=== PATIENT | female | born 1990 | race Caucasian/White ===

== ENCOUNTER 2017-09-09 01:13 | Emergency (ER) | payer OTHER ==
[~2017-09-09] VITALS: Ht 147.3 cm; Wt 104.3 kg
[2017-09-09] MEDS ORDERED: FLUOXETINE DR90 MG PO (02:32)
[2017-09-09] MEDS ORDERED: ZOVIRAX200 MG PO (02:34)
[2017-09-09] MEDS ORDERED: ABILIFY10 MG PO (02:34)
[2017-09-09] MEDS ORDERED: PREDNISONE20 MG PO (05:48)
== END 2017-09-09 06:42 | disposition home or self-care (01) ==
LOC: ED 01:13
DX: B34.9 Viral infection, unspecified (principal); R21 Rash and other nonspecific skin eruption; F31.9 Bipolar disorder, unspecified; Z90.49 Acquired absence of other specified parts of digestive tract; Z90.89 Acquired absence of other organs; Z79.899 Other long term (current) drug therapy
CPT/HCPCS: 80053; 81001; 84703; 85025; 96361; 96374; 96375; 99283; J1200; J2930; J7030

== ENCOUNTER 2020-07-14 22:42 | Emergency (ER) | payer OTHER ==
[~2020-07-14] VITALS: Ht 147.3 cm; Wt 104.3 kg
[~2020-07-14 22:42] MED LIST: ABILIFY10 MG PO; FLUOXETINE DR90 MG PO; PREDNISONE20 MG PO; ZOVIRAX200 MG PO
--- OUTSIDE RECORDS SUMMARY | 2020-07-14 22:46 | XMS ---
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 EBraden VISIT COUNT (12 MO.) 6 Stephen Alexander TOTAL 7 NOTE: Visits indicate total known visits. ED/UCC VISIT TRACKING (12 MO.) 07/14/2020 22:43 MOHAN [facility] [place] TYPE: Emergency COMPLAINT: - ASTHMA/PANIC ATTACK 07/04/2020 14:41 Stephen [facility] TYPE: Urgent Care DIAGNOSES: - Neuralgia and neuritis, unspecified - Anesthesia of skin - Numbness - Paresthesia of skin 06/07/2020 12:59 Stephen [facility] TYPE: Urgent Care DIAGNOSES: - Other chronic pain - Dorsalgia, unspecified - Other intervertebral disc degeneration, lumbar region 05/30/2020 08:58 Stephen Daleumberto NancyClarissa [facility] TYPE: Urgent Care DIAGNOSES: - Lumbago with sciatica, right side 05/29/2020 13:48 Stephen Ronumberto NancyClarissa [facility] TYPE: Emergency DIAGNOSES: - Rectal Bleed - Constipation, unspecified - Sciatica, unspecified side - Back pain 05/26/2020 17:34 Stephen Daleumberto NancyClarissa [facility] TYPE: Emergency DIAGNOSES: - Lumbago with sciatica, right side - Sciatica, unspecified side - Other chronic pain - Back Pain 03/23/2020 08:41 Stephen [facility] TYPE: Urgent Care DIAGNOSES: - Other seasonal allergic rhinitis - Unspecified temporomandibular joint disorder, unspecified waqas - Other - Generalized anxiety disorder 11/20/2019 16:36 Stephen Daleumberto NancyClarissa [facility] TYPE: Emergency DIAGNOSES: - Unspecified asthma with (acute) exacerbation - Chest pain - Shortness of Breath - Acute bronchitis, unspecified 09/04/2019 21:17 Stephen DaleBorden [place] TYPE: Emergency DIAGNOSES: - Acute bronchitis, unspecified - Cough 08/22/2019 11:35 Stephen Daleumberto NancyClarissa [facility] TYPE: Emergency DIAGNOSES: - Acute upper respiratory infection, unspecified - Other viral agents as the cause of diseases classified elsew - Fever, cough - Cough 07/29/2019 06:23 Stephen Antoni [facility] TYPE: Emergency DIAGNOSES: - Back pain - Sacrococcygeal disorders, not elsewhere classified - Muscle spasm of back - Low back pain INPATIENT VISIT TRACKING (12 MO.) No inpatient visits to display in this time frame [email or web address]
[2020-07-14] MEDS ORDERED: TRAZODONE HCL50 MG PO (22:58)
[2020-07-14] MEDS ORDERED: TRAMADOL HCL50 MG PO (22:58)
[2020-07-14] MEDS ORDERED: LAMOTRIGINE25 MG PO (22:58)
[2020-07-14] MEDS ORDERED: VENTOLIN HFA18 GM INH (22:59)
== END 2020-07-14 23:19 | disposition home or self-care (01) ==
LOC: ED 22:42
DX: J45.901 Unspecified asthma with (acute) exacerbation (principal); F31.9 Bipolar disorder, unspecified; F32.9 Major depressive disorder, single episode, unspecified; Z79.899 Other long term (current) drug therapy; Z79.891 Long term (current) use of opiate analgesic
CPT/HCPCS: 99284; J7512